=== PATIENT | female | born 1955 | race Caucasian/White ===

== ENCOUNTER 2016-09-27 07:15 | Emergency (ER) | payer OTHER ==
[~2016-09-27] VITALS: Ht 157.5 cm; Wt 104.3 kg
[2016-09-27 07:20] VITALS: BP 163/82
--- NOTE | 2016-09-27 07:42 | ED MVC/FALL/TRAUMA COMPLAINT ---
History of Present Illness General Chief Complaint: Fall Stated Complaint: FALL YESTERDAY FELL ON L HAND,PAIN IN L HIP/KNEE Source: patient Exam Limitations: no limitations Vital Signs & Intake/Output Vital Signs & Intake/Output Vital Signs Date Time Temp Pulse Resp B/P Pulse O2 O2 Flow FiO2 Ox Delivery Rate 09/27 0720 98.0 72 18 163/82 97 Room Air Allergies Coded Allergies: MDX - PCN (penicillin) (Mild, RASH 08/19/11) Triage Note: PT STATES THAT SHE SLIPPED ON ICE LAST PM AND HURT HER L HAND. REFUSES MEDS AT TRIAGE Triage Nurses Notes Reviewed? yes HPI: Patient presents for evaluation of injury sustained status post fall yesterday. Patient states she slipped on the ice and fell onto her left side. Since then she's had an abrupt onset of left hand forearm hip and groin pain. The pains are sharp and worse with movement and palpation. The pain has been constant but fluctuating in intensity. No medications tried to this point. Patient applied ice to the left forearm and wrist overnight. She has been ambulatory since the fall. There has been some mild soft tissue swelling at the base of the left hand and of the wrist. No associated ecchymoses. Patient denies loss of consciousness, neck or back pain. Past History Travel History Traveled to [place] past 21 day No Medical History Any Pertinent Medical History? see below for history Neurological: NONE EENT: NONE Cardiovascular: hypertension Respiratory: NONE Gastrointestinal: NONE Hepatic: NONE Renal: NONE Musculoskeletal: NONE Psychiatric: NONE Endocrine: NONE Blood Disorders: NONE Cancer(s): breast cancer Surgical History Surgical History: non-contributory Psychosocial History What is your primary language Vietnamese Tobacco Use: Never used ETOH Use: denies use Illicit Drug Use: denies illicit drug use Family History Hx Contributory? No Review of Systems Review of Systems Constitutional: Reports: no symptoms. Eyes: Reports: no symptoms. Ears, Nose, Throat, Mouth: Reports: no symptoms. Respiratory: Reports: no symptoms. Cardiovascular: Reports: no symptoms. Gastrointestinal/Abdominal: Reports: no symptoms. Genitourinary: Reports: no symptoms. Musculoskeletal: Reports: see HPI. Skin: Reports: see HPI. Neurological/Psychological: Reports: no symptoms. All Other Systems: Reviewed and Negative Physical Exam Physical Exam General Appearance: see below Comments: Gen.: Well-nourished, well-developed, no acute respiratory distress. Head: Normocephalic, atraumatic, nontender. Eyes: Normal inspection bilaterally, saji, EOMI Ears: Normal inspection bilaterally Nose: Normal inspection Throat/mouth : Moist mucosa Neck: Supple, full range of motion, no goiter, nontender Heart: Regular rate and rhythm, no murmurs rubs or gallops Lungs: Clear to auscultation bilaterally with normal air entry Chest: Nontender Back: Normal range of motion, nontender Abdomen: Soft, nontender, nondistended, normal bowel sounds Pelvis: Stable and nontender Extremities: Left upper extremity: Slightly decreased range of motion of the left wrist secondary to pain, no apparent ecchymoses or soft tissue swelling, patient is nontender over the shoulder and arm forearm and wrist. Mild tenderness of the base of the left thumb. All fingers are neurovascularly intact. No tenderness over the snuffbox. Mild tenderness with range of motion of the left hip. Neurologic: Cranial nerves grossly intact, speech is clear Skin: warm and dry and without ecchymoses or soft tissue swelling or erythema Psychiatric: Calm, cooperative, no apparent delusions or hallucinations Core Measures ACS in differential dx? No Severe Sepsis Present: No Septic Shock Present: No Progress Differential Diagnosis: fracture, dislocation, sprain, strain, contusion Plan of Care: Orders Procedure Date/time Status XRY-HAND, 3 View LEFT 09/27 721 Active Diagnostic Imaging: Discussed w/RAD: Radiology Read. Radiology Impression: PATIENT: LATASHA ELKINS PRESENT AGE: 60 PATIENT ACCOUNT NO: [id number] : 54 LOCATION: [facility] ORDERING PHYSICIAN: SAWYER CASTELLANOS DO SERVICE DATE: 09/27/16 EXAM TYPE: RAD - XRY-HAND, LEFT EXAMINATION: XR HAND, LEFT CLINICAL INFORMATION: Fall. Hand pain. COMPARISON: None TECHNIQUE: AP, lateral, and oblique views of the left hand. FINDINGS: There is no visible acute fracture or dislocation. There is mild reduction in PIP and DIP joints with marginal osteophytes suggestive of degenerative arthritis. This also involves the first carpometacarpal joint. Large osteophyte is seen at this level. Subchondral cystic changes are seen along the distal radius and ulna. The soft tissues are normal. IMPRESSION: No visible acute fracture or dislocation. Degenerative arthritic changes PIP, DIP and first carpometacarpal joint. There is a large osteophyte of the first carpometacarpal joint. DICTATED BY: CONTRERAS JAMES MD DATE /TIME DICTATED:09/27/16803 LOADER DEMOLDER:KRANTHI DATE/TIME TRANSCRIBED: 09/27/16803 CONFIDENTIAL, DO NOT COPY WITHOUT APPROPRIATE AUTHORIZATION. < Electronically signed in Other Vendor System> SIGNED BY: CONTRERAS JAMES MD 809 Comments: Patient felt that x-rays of the left hip were unnecessary. Ye wrap placed by me prior to discharge. 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 Continue to ice any areas of swelling over the next 24 hours. Ibuprofen 600 mg every 6 hours as needed for pain. Follow- up with your primary care physician if not improved in a week to 10 days. Return if any concerns or sudden worsening. Please note that there might be incidental findings in your evaluation that are unrelated to the current emergency department visit. Please notify your primary care doctor about this emergency department visit in order to obtain and review all of the testing performed so that these incidental findings can be monitored as needed. If you had an x-ray performed, please understand that some fractures may not be seen on the initial set of x-rays. If your symptoms persist you might need a repeat set of x-rays to check for such a fracture. If you had a laceration evaluated, please understand that foreign bodies such as glass or wood may not be visible to the naked eye or on plain x-rays. If the wound becomes red, swollen, increasingly more painful or if there is any drainage from the wound, please have it reevaluated by a physician for the possibility of a retained foreign body. Thank you for choosing the [facility] Emergency [facility] for your care. It was a pleasure to serve you today. Sawyer Gamble M.D. [facility] Departure Forms: Customer Survey General Discharge Information
--- NOTE | 2016-09-27 08:10 | RADIOLOGY REPORT ---
EXAMINATION: XR HAND, LEFT CLINICAL INFORMATION: Fall. Hand pain. COMPARISON: None TECHNIQUE: AP, lateral, and oblique views of the left hand. FINDINGS: There is no visible acute fracture or dislocation. There is mild reduction in PIP and DIP joints with marginal osteophytes suggestive of degenerative arthritis. This also involves the first carpometacarpal joint. Large osteophyte is seen at this level. Subchondral cystic changes are seen along the distal radius and ulna. The soft tissues are normal. IMPRESSION: No visible acute fracture or dislocation. Degenerative arthritic changes PIP, DIP and first carpometacarpal joint. There is a large osteophyte of the first carpometacarpal joint.
== END 2016-09-27 08:41 ==
LOC: ERH 07:15
DX: S63.92XA Sprain of unspecified part of left wrist and hand, initial encounter (principal); S63.502A Unspecified sprain of left wrist, initial encounter; S73.102A Unspecified sprain of left hip, initial encounter; M19.049 Primary osteoarthritis, unspecified hand; W00.0XXA Fall on same level due to ice and snow, initial encounter
CPT/HCPCS: 73130-LT